=== PATIENT | female | born 1985 | race Caucasian/White ===

== ENCOUNTER → 2021-08-01 08:01 | Outpatient (CLI) | payer OTHER, SELFPAY ==
--- NOTE | 2021-08-01 08:03 | DI.US.S_ITS ---
PROCEDURE: US PELVIC COMPLETE INDICATIONS: HEAVY IRREGULAR MENSES TECHNIQUE: Real-time scanning was performed of the pelvic organs, with image documentation. Additional endovaginal scanning was necessary due to incomplete visualization of the adnexal and endometrial structures by transabdominal scanning. COMPARISON: [facility], US, US PELVIC COMPLETE, 03/14/2018, 15:43. FINDINGS: Uterus: Uterus is anteverted and normal in size at 7.8 x 5.9 x 4.5 cm. The myometrium is homogeneous. The endometrium measures 10.4 mm combined thickness. The endometrial stripe demonstrates a complex appearance. No abnormal vascularity can be seen along the endometrial stripe. Incidental note is made of nabothian cysts. Ovaries: The right ovary measures 3.3 x 3 x 2.2 cm and demonstrates a 2 mm calcification with in it. The left ovary measures 3.5 x 3.2 x 1.5 cm. The ovaries have a normal sonographic appearance. No adnexal masses are seen. Other: No pathologic free abdominal or pelvic fluid. IMPRESSION: There is a complex appearance of the endometrial stripe, without abnormal vascularity or abnormal thickening. No significant ovarian abnormality is seen. We strive to produce accurate, complete, and clear reports of imaging services. To assist us in improving patient care, this report was composed using standard report templates and voice recognition software. Therefore, it may contain abnormal punctuation, insertions and/or omissions. Occasional wrong-word or sound-alike substitutions may occur. Though we review the report and make efforts to correct it, we do recommend that the report be read carefully in proper context to recognize any text inaccuracies. Dictated by: Severino Licea M.D. on 08/01/2021 at 10:10 Approved by: Severino Licea M.D. on 08/01/2021 at 10:12
== END ==
PROVIDERS: PCP Family Medicine; Referring Provider Specialist; Visit Provider Specialist
DX: N92.1 Excessive and frequent menstruation with irregular cycle (principal)
CPT/HCPCS: 76830; 76856

== ENCOUNTER 2022-12-10 07:40 | Day surgery (SDC) | payer OTHER, SELFPAY ==
--- NOTE | 2022-12-10 | PATH_ITS ---
[facility] Accession Number: [id number] No. of containers..01 Tissue . 01 Material submitted: . endometrium - ENDOMETRIAL CURETTINGS . 01 Diagnosis: Endometrial Curettings: Portions of inactive endometrial tissue with patchy acute and chronic inflammation, cannot completely exclude acute and/or chronic endometritis. Please correlate with clinical findings. Some endometrial fragments demonstrate prominent vessels, suggestive of polyp, if clinical and imaging studies are concordant. Avulsed squames with reactive features; negative for significant atypia. Portions of myometrium; negative for significant atypia. MRV 12/18/2022 1650 Local . 01 Electronically signed: . Aisha Bell MD, Pathologist NPI- [id number] . 01 Gross description: . The specimen is received in formalin labeled with the patient's name, , and endometrial curettings consists of multiple valdez soft tissue fragments admixed with mucohemorrhagic material aggregating to 2.5 x 1.2 x 0.1 cm. Filtered and submitted in A1. ([id number]) /MRV 12/16/2022 1705 Local . 01 Pathologist provided ICD-10: N92.1, N94.6 . 01 CPT . 926146 Specimen Comment: A courtesy copy of this report has been sent to [phone] Performed at: [facility] [address] [place] [address], [place], [place] [id number] MD Reji Pate MD Phone: [phone]
[2022-12-10 10:28] VITALS: BP 125/81; PULSE 68; RESP 17; TEMP 36.2; O2SAT 97; BMI 39.9
[2022-12-10] MEDS: LACTATED RINGERS 1,000 ML 100 ML IV (10:39)
--- NOTE | 2022-12-10 12:20 | PM.GYNHP.1 ---
History of Present Illness History of Present Illness Narrative: Radhika Casas is a 37 year old female who presents for a D&C hyst with Novasure ablation and Mirena IUD removal [facility], [facility] Surgical History Status post delivery (06/14/15) Status post rotator cuff repair (2005) Social History household members: spouse Smoking Status: Never smoker alcohol intake: current Meds Home Medications and Allergies Home Medications Medication Instructions Recorded Confirmed Type levothyroxine 112 mcg capsule 112 mcg PO DAILY 01/10/18 12/10/22 History sertraline 100 mg tablet 100 mg PO DAILY 07/14/21 12/10/22 History bupropion HCl 150 mg 24 hr tablet, mg PO 12/10/22 History extended release Allergies Allergy/AdvReac Type Severity Reaction Status Date / Time erythromycin base AdvReac Vomiting Verified 12/10/22 10:24 [From Erythrocin] vicryl suture AdvReac Intermediate spitting Uncoded 08/05/21 10:17 suture rather than absorbtion Exam Vital Signs (past 8 hours): - 12/10/22 10:28 Temperature 97.2 F L Pulse Rate 68 Respiratory Rate 17 Blood Pressure 125/81 Pulse Oximetry 97 Oxygen Delivery Method Room Air Oxygen Delivery Method Room Air Narrative Exam Narrative: HEENT: No thyromegaly, no anterior cervical or supraclavicular lymphadenopathy. Lungs:Clear to auscultation bilaterally, no wheezes. Cardiovascular: Regular rate and rhythm, no murmurs, rubs, or gallops. Abdomen: Well-healed scar. No hepatosplenomegaly. No masses palpable. External genitalia: Normal Vagina: Normal Cervix: IUD string visible Bimanual exam: 8 Week size uterus. Mobile. Ext: No edema Assessment & Plan Assessment & Plan narrative: Assessment: 37-year-old 3 para 2 with menorrhagia and dysmenorrhea IUD in place Plan: IUD removal, D&C hysteroscopy and endometrial ablation The risks, benefits, and alternatives to the procedure were explained to the patient. The risks including bleeding, infection, and uterine perforation. She understands these risks and agrees to proceed. A full par Q was held and consent form was signed. Time Spent With Patient Time with patient: less than 30 minutes
--- NOTE | 2022-12-10 12:45 | PM.PREOP ---
Pre-operative Note COVID-19 Criteria for continued procedure: Non-surgical alternatives not available or appropriate per current SOC Interval Note History & Physical reviewed/Exam performed by Physician: Yes Changes to H&P: No H&P completed within 30 days and has changed as indicated here:: 12/10/22
--- NOTE | 2022-12-10 13:07 | SUR.OPER ---
Lithotomy on padded OR bed, head on pillow, arms secured on padded arm boards at <90 degrees abduction. Legs secured in padded yellow fins stirrups.
[2022-12-10 13:28] VITALS: BP 100/40; PULSE 63; RESP 16; TEMP 36.4; O2SAT 96
[2022-12-10 13:29] VITALS: BP 101/55; PULSE 65; RESP 16; O2SAT 95
--- NOTE | 2022-12-10 13:31 | SUR.PHASEI ---
1324 - Received to PACU after general anesthesia. Airway patent, self maintained. Report from FIGUEROA Mena and Dr Caballero.
[2022-12-10 13:39] VITALS: BP 109/58; PULSE 65; RESP 16; TEMP 36.3; O2SAT 97
[2022-12-10] MEDS: OXYCODONE/ACETAMINOPHEN 5/325 TABLET 1 TAB PO (13:41)
[2022-12-10 13:54] VITALS: BP 117/52; PULSE 60; RESP 20; TEMP 36.1; O2SAT 97
--- NOTE | 2022-12-10 14:05 | SUR.PHASEII ---
DC home with Mother. Mild Cramping. Lnows to take ibuprofen at 1900. no n/v. tolerating PO
--- NOTE | 2022-12-10 18:24 | PM.GYNOP.1 ---
Operative Date/Time/Diagnoses Date of procedure: 12/10/22 Time of procedure: 13:00 Pre-op diagnosis: Menorrhagia Dysmenorrhea Post-op diagnosis: same Procedure & Clinicians Procedure: Procedures Operation Date: 12/10/22 12:15 Actual Procedure Side Surgeon p Hysteroscopy D&C w/ Novasure Ablation, IUD REMOVAL Monse Soni MD Indications: Menorrhagia Dysmenorrhea Surgeon: Monse Soni Anesthesia Type: General (LMA) Operative Notes Findings: 7 week size anteverted uterus Both Fallopian tube ostia observed No polyps or fibroids IUD strings visible outside of the cervix Closure Type: not applicable Specimen(s): endometrial curettings Applied: device(s) (Novasure) Estimated blood loss (mL): 10 Blood products transfused: none Procedure in detail: After informed consent was obtained, the patient was taken to the operating room where she was placed in the dorsal supine position. After LMA general anesthesia was obtained, the patient was placed in the dorsolithotomy position and prepped and draped in the usual sterile fashion. A timeout was performed. A bivalve speculum was placed in the vagina. The IUD strings were grasped and the IUD was removed without difficulty. A single tooth tenaculum was placed on the anterior lip of the cervix. The cervical os was sequentially dilated to the #9 Hegar dilator. The hysteroscope passed easily into the endometrial cavity. Both fallopian tube ostia were observed. The hysteroscopy was removed. Sharp curettage was performed yielding a moderate amount of endometrial tissue. The uterus was measured from the internal os to the fundus and measured 5.5cm. The was set on the catheter and the generator. The catheter passed easily into the endometrial cavity. The catheter was opened. The width was 3.7 cm. This indicated a power of 112 Stauffer. The cervix was capped, the cavity assessment was performed and passed. The cycle was initiated and lasted 1 minute and 3 seconds. At the completion of the cycle, the catheter was closed, the cervix was uncapped, the catheter was removed from the uterus. Sponge, lap and instruments counts were correct x 2. The patient tolerated the procedure well and was taken to PACU in stable condition,. Complications: none Post-operative Condition: stable Disposition: PACU Plan for aftercare: Home after recovery
== END 2022-12-10 14:06 | disposition home or self-care (01) ==
PROVIDERS: PCP Specialist; Referring Provider Obstetrics & Gynecology; Visit Provider Obstetrics & Gynecology
PROC: 0U5B8ZZ Destruction of Endometrium, Via Natural or Artificial Opening Endoscopic (ICD-10-PCS; CPT 58563; principal; 2022-12-10 12:15)
DX: N92.0 Excessive and frequent menstruation with regular cycle (principal); N94.6 Dysmenorrhea, unspecified; Z30.432 Encounter for removal of intrauterine contraceptive device; N71.9 Inflammatory disease of uterus, unspecified
CPT/HCPCS: 58563; 58301; J1100; J2405; J2704; J3010

== ENCOUNTER → 2023-08-20 09:33 | Outpatient (CLI) | payer OTHER, SELFPAY ==
--- NOTE | 2023-08-20 09:35 | DI.MRI.S_ITS ---
PROCEDURE: MR LUMBAR SPINE WO CON INDICATIONS: Low back pain, unspecified TECHNIQUE: Noncontrast sagittal T1 spin echo and T2 fast echo, sagittal STIR, and T2 fast spin echo through the lumbar spine. In cases with scoliosis, additional coronal T2 fast spin echo may be performed. COMPARISON: None. FINDINGS: Image quality: Excellent. Alignment and Curvature: There is normal bony alignment. Bone Marrow: Marrow is of normal overall signal. No acute vertebral body compression fractures. Spinal Cord: Conus medullaris terminates at the L1 level. Visualized cord demonstrates normal signal and size. Paraspinous Soft Tissues: No paravertebral masses. There is a large cystic lesion within the upper pole of the left kidney which is incompletely characterized on this limited view. T12-L1: Normal appearance. L1-L2: Normal appearance. L2-L3: Normal appearance. L3-L4: Normal appearance. L4-L5: Mild disc desiccation and height loss. Small posterior focal high-intensity zone. No canal stenosis. No foraminal stenosis. L5-S1: Mild disc desiccation and height loss. There is a broad-based left paracentral disc bulge and associated focal high-intensity zone. No canal stenosis. No foraminal stenosis. IMPRESSION: 1. No canal stenosis or foraminal stenosis of the lumbar spine. 2. 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 3. Small broad-based left paracentral disc bulge without canal stenosis or foraminal narrowing. Dictated by: Ghazala Cortez M.D. on 08/20/2023 at 14:29 Approved by: Ghazala Cortez M.D. on 08/20/2023 at 14:32
== END ==
LOC: MRI 09:34
PROVIDERS: PCP Specialist; Referring Provider Nurse Practitioner Family; Visit Provider Nurse Practitioner Family
DX: M51.36 Other intervertebral disc degeneration, lumbar region (principal); M51.37 Other intervertebral disc degeneration, lumbosacral region; M54.50 Low back pain, unspecified; M25.551 Pain in right hip
CPT/HCPCS: 72148

== ENCOUNTER 2024-05-08 06:12 | Day surgery (SDC) | payer OTHER, SELFPAY ==
[2024-05-03 15:17] VITALS: BMI 40.7
[2024-05-08] VITALS (14 sets, daily range): BP systolic 102–142; BP diastolic 55–82; PULSE 70–94; RESP 14–20; TEMP 35.8–37.5; O2SAT 91–97; BMI 40.7
--- NOTE | 2024-05-08 | PATH_ITS ---
[facility] Accession Number: [id number] No. of containers..01 Tissue . 01 Material submitted: . uterus - UTERUS WITH BILATERAL TUBES . 01 Diagnosis: UTERUS WITH BILATERAL TUBES, LAPAROSCOPIC SUPRACERVICAL HYSTERECTOMY WITH BILATERAL SALPINGECTOMY (WEIGHT 55 GRAMS): Weakly proliferative endometrium; negative for significant atypia. Myometrium with no significant histomorphologic abnormality. Uterine serosa with no significant histomorphologic abnormality. Fimbriated fallopian tube, complete cross sections; negative for significant atypia. Nonfimbriated fallopian tube, complete cross sections; negative for significant atypia. V 05/11/2024 1334 Local . 01 Electronically signed: . Aisha Bell MD, Pathologist NPI- [id number] . 01 Gross description: . Received in formalin with two patient identifiers and uterus and bilateral tubes, is a fragmented uterus (55 grams, 10.2 x 5.3 x 2.9 cm in aggregate), with a detached fimbriated fallopian tube (4.8 x 0.9 cm) and detached portion of presumed tube with no fimbriae identified (1.3 x 0.4 cm) with no cervix or additional adnexa identified. The serosa is valdez and smooth with no hemorrhage or adhesion. The presumed endometrium is valdez and velvety and averages 0.1 cm thick with no lesions identified. The myometrium is valdez and trabecular with no nodules identified. . Both tubes have violaceous smooth serosa with no cysts identified and the lumens are stellate and unremarkable. Gas Charger sections are submitted as follows: . A1: Endometrium. A2: Serosa. A3: Fimbriated fallopian tube to include one-half of bisected fimbriae and cross sections. A4: Nonfimbriated fallopian tube cross sections. ([id number]) /MRV 05/09/2024 1904 Local . 01 Pathologist provided ICD-10: N92.0, N94.6 . 01 CPT . 973071 Specimen Comment: A courtesy copy of this report has been sent to [phone] Performed at: [facility] [address], [place], [place] [id number] MD Reji Pate MD Phone: [phone]
[2024-05-08] MEDS: LACTATED RINGERS 1,000 ML 21 ML IV (07:27)
--- NOTE | 2024-05-08 07:27 | SUR.OPER ---
Lithotomy on padded OR bed. [place] Pad Positioner under torso. Head on pillow, arms padded and tucked at sides. Legs secured in padded yellow fins stirrups.
--- NOTE | 2024-05-08 07:37 | PM.PREOP ---
Pre-operative Note Interval Note History & Physical reviewed/Exam performed by Physician: Yes Changes to H&P: No H&P completed within 30 days and has changed as indicated here:: 05/03/24
[2024-05-08] MEDS: SCOPOLAMINE 1 PATCH TOP (07:39)
[2024-05-08] MEDS: CEFAZOLIN 2 GM/100 ML PREMIX 100 ML IV (07:51)
[2024-05-08] MEDS: ACETAMINOPHEN IV 1,000 MG/100 ML VIAL 400 MG IV (08:01)
[2024-05-08] MEDS: BUPIVACAINE 0.5% W/ EPI (PF) 30 ML VIAL INJ (08:12)
[2024-05-08] MEDS: ROPIVACAINE 0.2% PF 2 MG/ML 10ML AMP 20 ML INJ (08:13)
--- NOTE | 2024-05-08 09:56 | PM.GYNOP.1 ---
Operative Date/Time/Diagnoses Date of procedure: 05/08/24 Time of procedure: 09:56 Pre-op diagnosis: Failed endometrial ablation Menorrhagia Post-op diagnosis: same Procedure & Clinicians Procedure: Procedures Operation Date: 05/08/24 07:45 Actual Procedure Side Surgeon p Laparoscopic Supracervical Hysterectomy with bilateral salpingectomy Monse Soni MD Lysis of omental adhesions in an umbilical hernia Indications: 38-year-old 3 para 2 with menorrhagia and a failed endometrial ablation Surgeon: Monse Soni Mechanical Commissioning Engineer: Maliha Lobo Anesthesia Type: General and Local Operative Notes Findings: 8 week size anteverted uterus Normal tubes and ovaries Large umbilical hernia with omentum herniated through Fascial adhesions Bladder to uterine adhesions Liver and gallbladder were normal Appendix was normal Closure Type: primary Specimen(s): left tube, right tube and uterus Applied: catheter (Removed at the end of the case) Estimated blood loss (mL): 50 Blood products transfused: none Procedure in detail: The patient was taken to the operating room where she was placed in the dorsal supine position. After adequate general endotracheal anesthesia was achieved, she was placed in the dorsal lithotomy position, and prepped and draped in the usual sterile fashion. A time-out was performed. A bivalve speculum was placed into the vagina and the anterior lip of the cervix was grasped with a single-tooth tenaculum. The cervical os was sequentially dilated until the Zumi uterine manipulator could pass easily into the endometrial cavity. The single-tooth tenaculum was removed from the anterior lip of the cervix. The bivalve speculum was removed from the vagina. Attention was turned to the abdomen where 6 cc of 0.5% Marcaine with epinephrine were injected in the umbilical fold. A 5 mm vertical incision was made. The long Veress needle was placed into the peritoneal cavity, and its placement confirmed by aspiration and drop test. The abdominal cavity was insufflated with 4 L of CO2. The Veress needle was removed, and the the long 5 mm trocar was placed under direct visualization. Two other incisions were made lateral to the midline with care to avoid the blood vessels. 6 cc of 0.5% Marcaine with epinephrine were injected. 5 mm trocars were placed under direct visualization. The camera was moved to the left lateral trocar. There was found to be an umbilical hernia with omentum in the hernia. After inspection and no bowel seen in the omentum. The power seal was used to take the omentum down with cautery and cut. The right tube was grasped with an atraumatic grasper. Using the power seal, the mesosalpinx was cauterized and cut all the way down to the fundus of the uterus. The fundus was grasped. The utero-ovarian vessels were cauterized and cut. The broad ligament and round ligament were cauterized and cut. The bladder flap was created using the power seal with cautery and cut snf across. The uterine arteries on the right side were extensively cauterized with the power seal. All of this was repeated on the patient's left side. The Yani loop was placed. The Zumi uterine manipulator was removed from the uterus and a moistened sponge stick placed in the vagina. The uterus was amputated from the cervix 2 cm above the uterosacral ligaments. There was a small amount of bleeding noted and this was cauterized with the spatula cautery as was the endocervical canal. 6 cc of 0.5% Marcaine with epinephrine were injected through the previous Pfannenstiel incision in the midline just above the pubic symphysis. A 2 cm incision was made. A 12 mm trocar was placed under direct visualization. The endobag was placed through the suprapubic trocar and opened. The uterus and tubes were placed into the bag. The trocar was removed. The edges of the bag were brought up through the skin. The fascial incision was extended bilaterally with the Carrasco scissors. The uterus was grasped with a Kal. The Miguelito was placed into the bag. The uterus and tubes were morcellated in approximately 5 pieces. The Miguelito and endobag were removed from the abdomen. The fascial incision was closed with 0 Prolene in a running fashion. The abdomen was re-insufflated. The pelvis was examined. There was no bleeding noted. 20 cc of 0.2% ropivacaine were placed over the pelvic pedicles. The instruments were removed from the abdomen. The CO2 was allowed to escape. All of the incisions were closed with 4-0 Monocryl in a subcuticular fashion. Steri-Strips and Allevyn dressings were placed. The moistened sponge stick was removed from the vagina. Sponge, lap, and instrument counts were correct x2. The patient tolerated the procedure well, and was taken to PACU in stable condition. Complications: none Post-operative Condition: stable Disposition: PACU Plan for aftercare: To acute care after recovery
[2024-05-08] MEDS: SODIUM CHLORIDE 0.9% 1,000 ML 50 ML IV (11:20)
[2024-05-08] MEDS: KETOROLAC 30 MG/ML VIAL IV ×2 (15:28→20:24)
--- NOTE | 2024-05-08 15:54 | PC.NURSE ---
Patient arrives this a.m. at approximately 1030. She is A&OX4, VSS, afebrile on RA.She reports pain tolerable at 2-3/10 achey . Alevyn sites to abdomen c/d/i x4. No bleeding noted to bonita pad. She is able to ambulate to the BR w/o dizziness and void w/o difficulty. She tolerates po ok. SCD's on, call light in reach, post op VS,bed alarm, IVF NS at 100 ml/hr, admission assessment completed and continuous monitoring.
[2024-05-08] MEDS: ACETAMINOPHEN 325 MG TABLET 650 MG PO (16:58)
[2024-05-08] MEDS: DOCUSATE 100 MG CAPSULE 200 MG PO (20:25)
[2024-05-09] MEDS: ACETAMINOPHEN 325 MG TABLET 650 MG PO (01:49)
[2024-05-09] MEDS: KETOROLAC 30 MG/ML VIAL IV ×2 (01:49→08:09)
[2024-05-09] MEDS: LEVOTHYROXINE 100 MCG TABLET PO (06:13)
[2024-05-09 06:29] LABS: Add Manual Diff / Slide Review NO; Basophils Absolute Auto 100 /uL (0-100); Basophils Percent Auto 0.5 % (0-2); Eosinophils Absolute Auto 0 /uL (0-450); Eosinophils Percent Auto 0.4 % (2-4); Hematocrit 35.3 % (36-46); Hemoglobin 11.9 g/dL (12.0-16.0); Lymphocytes Absolute Auto 1900 /uL (1100-4500); Lymphocytes Percent Auto 17.7 % (25-40); Mean Corpuscular HGB Conc 33.7 % (30-36); Mean Corpuscular Hemoglobin 28.4 PG (26-34); Mean Corpuscular Volume 84.2 fL (80-100); Monocytes Absolute Auto 1000 /uL (0-900); Monocytes Percent Auto 9.6 % (3-14); Neutrophils Absolute Auto 7900 /uL (1500-7000); Neutrophils Percent Auto 71.8 % (50-75); Platelet Count 345 X10^3/uL (150-400); Red Blood Cell Count 4.19 X10^6/uL (4.0-5.2); Red Cell Distribution Width 14.9 % (11.6-14.8)
[2024-05-09] MEDS: DOCUSATE 100 MG CAPSULE 200 MG PO (08:09)
[2024-05-09] MEDS: SERTRALINE 50 MG TABLET 100 MG PO (08:10)
[2024-05-09] MEDS: buPROPion XL 150 MG TAB 300 MG PO (08:10)
[2024-05-09] MEDS: LIOTHYRONINE 5 MCG TABLET PO (08:10)
--- NOTE | 2024-05-09 08:48 | CM.DANOTE ---
Initial DCP Assessment Visit Note Reviewed EMR and team rounds for status updates. Met with pt/spouse at bedside to introduce self and role, pt was found to be dressed and ready for home d/c, her spouse is here to transport her home. Pt lives independently at baseline with her spouse and children. She denied any CM assistance/resource needs at this time. Payor: Medicare Attending: Dr. Soni Pt is a 38 year-old F post-op day 1 from a lap hysterectomy. She has a hx of worsening, painful, and heavy menstrual cycles which significantly interfere with her quality of life and ADL's. She did have an endometrial ablation in November 2022, however it only lasted about 3-months before her symptoms returned. She is doing well postoperatively with no complications, and will d/c before 10:00am. No further needs identified. Provided a Medical Priority Boarding Pass, per her request. Discharge Planning/Care Management Advanced directive, confirm from FAMILY Start: 05/08/24 11:10 Freq: Q24H Status: Active Protocol: Document 05/08/24 11:10 CLP (Rec: 05/08/24 17:02 CLP [id number]) Advance Directive, confirm on record Time 17:02 Person contacted patient Copy received No CM Discharge Assessment Start: 05/09/24 08:46 Freq: Status: Active Protocol: Document 05/09/24 08:46 DPL (Rec: 05/09/24 08:48 DPL [id number]) Discharge Planning Assessment Assigned Executive Meeting Manager JOHANNA Vizcaino Advance Directives? No Advance Directives on File No History Provided By Patient,Significant Other, Medical Record Has Patient been admitted in last 30 No days? Prior Living Arrangements House Household Members spouse,children Type of transporation used prior to Drives own vehicle admit Independent with ADL's Yes Is patient alert and oriented? Yes Caregiver for Another Yes: children Comment N/A Comment N/A Comment OP Surgery f/u Barriers to Discharge No Discharge Plan Home Transportation Arrangement Spouse Referrals Initiated None needed Whiteboard Updated in Patient Room with Yes name and ext. # of Executive Meeting Manager Review Status In Process Please Provide Date Initial DC 05/09/24 Assessment Was Performed Pre-Anesthesia Assessment Start: 05/03/24 15:17 Freq: Status: Active Protocol: Document 05/03/24 15:17 LB (Rec: 05/03/24 15:25 LB [id number]) Pre-Anesthesia Assessment PAC Comment 05/03/24 Chart review. Preferred Name Trina Patient Information Reviewed Via Chart Review Comment No testing identified. Primary Care Provider Yany Bahena Medical Clearance Received Not Applicable Seen Specialist in Last 12 Months Yes Specialist Seen General surgeon Primary Language Bahamian Preferred Language Bahamian Moving Picture Operator Required No Height 165.1 cm Weight 111.13 kg Body Mass Index (BMI) 40.7 Anesthesia Review Requested No Mailing Clerk No alcohol intake current Smoking Status Never smoker Substance Use Type marijuana Patient is completely paralyzed or No completely immobile Is patient on oxygen? No Hx Sleep Apnea No Currently Taking a Beta Perico No Anti-Coagulant Therapy No Cardiac Testing No Hx Pacemaker/ICD No Cardiac Clearance Received Not Applicable Hx Urinary Self Catheterization No Diabetes No Received a COVID vaccine? Yes Marital Status Lives With spouse Patient Discharge Plan Description Return Home Emergency Contact Name Izabel Casas - spouse Emergency Contact Advance Directives? No
--- NOTE | 2024-05-09 10:18 | PC.NURSE ---
Patient is A&OX4, VSS, on RA. She is up ambulating in the room independently and voiding w/o difficulty. She denies n/v dizziness/ SOB and reports pain is well controlled with just toradol and tylenol. She is evaluated at bedside by MD Soni and cleared for discharge this a.m. She acknowledges understanding of discharge instructions and follow up appointment pre- scheduled with MD Soni. RN escorts her to private vehicle with S.O to main entrance for discharge home today with priorty boarding pass to [facility] at approximately 0900 a.m.
== END 2024-05-09 08:55 | disposition home or self-care (01) ==
LOC: OR 06:15 → AC 06:16
PROVIDERS: PCP Nurse Practitioner Family; Referring Provider Obstetrics & Gynecology; Visit Provider Obstetrics & Gynecology
PROC: 0UT94ZL Resection of Uterus, Supracervical, Percutaneous Endoscopic Approach (ICD-10-PCS; CPT 58542; principal; 2024-05-08 07:45)
DX: N92.0 Excessive and frequent menstruation with regular cycle (principal); N94.6 Dysmenorrhea, unspecified; K42.9 Umbilical hernia without obstruction or gangrene; N73.6 Female pelvic peritoneal adhesions (postinfective)
CPT/HCPCS: 58542; 36415; 85025; J0134; J0690; J1100; J1885; J2250; J2405; J2704; J2795; J3010